=== PATIENT | female | born 1975 | race Asian ===

== ENCOUNTER 2019-03-14 23:01 | Emergency (ER) | payer MEDICAID ==
[~2019-03-14] VITALS: Ht 154.9 cm; Wt 90.0 kg
[~2019-03-14 23:01] MED LIST: CYCL1DRO EACHEYE; FLUT1DIS4 INH; IBUP-24 PO; LEVO137T2 PO; LORA10TA7 PO; PRED5TAB PO
[2019-03-14] MEDS ORDERED: guaiFENesin/codeine phos 10ml UD oral syrup PO ONE (23:30)
[2019-03-14] MEDS ORDERED: benzonatate 100mg capsule PO ONE (23:30)
[2019-03-14 23:48] LABS: BASOPHILS # (AUTO) 0.1 X10'3 (0-0.2); EOSINOPHILS # (AUTO) 0.3 X10'3 (0-0.9); EOSINOPHILS % (AUTO) 4.4 % (0-6); HEMATOCRIT 39.3 % (35.0-45.0); HEMOGLOBIN 13.3 g/dl (12.0-16.0); LYMPHOCYTES # (AUTO) 3.2 X10'3 (1.1-4.8); LYMPHOCYTES % (AUTO) 43.2 % (21-51); MEAN CORPUSCULAR HEMOGLOBIN 27.9 PG (27.0-31.0); MEAN CORPUSCULAR HGB CONC 33.9 g/dL (33.0-36.5); MEAN CORPUSCULAR VOLUME 82.4 FL (78-98); MEAN PLATELET VOLUME 7.6 FL (7.4-10.4); MONOCYTES # (AUTO) 0.4 X10'3 (0-0.9); MONOCYTES % (AUTO) 5.8 % (2-12); NEUTROPHILS # (AUTO) 3.3 X10'3 (1.8-7.7); NEUTROPHILS % (AUTO) 45.6 % (42-75); PLATELET COUNT 281 X10'3 (140-440); RED BLOOD COUNT 4.77 X10'6 (4.20-5.60); RED CELL DISTRIBUTION WIDTH 13.4 % (11.5-14.5); WHITE BLOOD COUNT 7.3 X10'3 (4.5-11.0)
[2019-03-15 00:02] LABS: ALANINE AMINOTRANSFERASE 30 U/L (12-78); ALBUMIN 3.4 G/DL (3.4-5.0); ALBUMIN/GLOBULIN RATIO 0.8 (1.1-1.5); ALKALINE PHOSPHATASE 59 IU/L (46-116); ANION GAP 6 (8-16); ASPARTATE AMINO TRANSFERASE 15 U/L (10-37); BILIRUBIN,TOTAL 0.1 MG/DL (0.1-1.0); BLOOD UREA NITROGEN 18 MG/DL (7-18); BUN/CREATININE RATIO 21.2 (6.6-38.0); CALCIUM 8.8 MG/DL (8.5-10.1); CHLORIDE 106 MMOL/L (99-107); CREATININE 0.85 MG/DL (0.40-0.90); GLUCOSE 151 MG/DL (70-104); POTASSIUM 3.5 MMOL/L (3.5-5.1); SODIUM 140 MMOL/L (135-145); TOTAL CARBON DIOXIDE 27.8 MMOL/L (24-32); TOTAL PROTEIN 7.7 G/DL (6.4-8.2); eGFR 73 ML/MIN
--- NOTE | 2019-03-15 00:50 | NUR ---
PTS SON AT BEDSIDE. VSS. AWAITING FLU RESULT
[2019-03-15] MEDS ORDERED: PROM5SYR2 PEG (01:04)
[2019-03-15 01:29] VITALS: BP 127/54
== END 2019-03-15 01:31 | disposition home or self-care (01) ==
LOC: ER 23:02
DX: R05 Cough (principal); R50.9 Fever, unspecified; R51 Headache; R19.7 Diarrhea, unspecified; R09.81 Nasal congestion; H92.01 Otalgia, right ear; J45.909 Unspecified asthma, uncomplicated; Z79.899 Other long term (current) drug therapy
CPT/HCPCS: 36415; 71046; 80053; 85025; 87502; 87503; 99284

== ENCOUNTER 2019-12-29 17:14 | Emergency (ER) | payer MEDICAID ==
[~2019-12-29 17:14] MED LIST changes: +PROM5SYR2 PEG
--- NOTE | 2019-12-29 18:09 | NUR ---
patient seen and assessed by provider
== END 2019-12-29 18:09 | disposition home or self-care (01) ==
LOC: ER 17:14
DX: J06.9 Acute upper respiratory infection, unspecified (principal); R05 Cough; Z20.828 Contact with and (suspected) exposure to other viral communicable diseases; J45.909 Unspecified asthma, uncomplicated; Z79.899 Other long term (current) drug therapy
CPT/HCPCS: 36415; 87635; 99283

== ENCOUNTER 2021-06-05 13:36 | Emergency (ER) | payer MEDICAID ==
[~2021-06-05] VITALS: Ht 152.4 cm; Wt 81.8 kg
[2021-06-05 13:39] VITALS: BP 139/81
== END 2021-06-05 16:11 | disposition home or self-care (01) ==
LOC: ER 13:40
DX: S06.0X0A Concussion without loss of consciousness, initial encounter (principal); J45.909 Unspecified asthma, uncomplicated; E06.9 Thyroiditis, unspecified; Z79.899 Other long term (current) drug therapy; W19.XXXA Unspecified fall, initial encounter; Y93.89 Activity, other specified; Y99.8 Other external cause status; Y92.89 Other specified places as the place of occurrence of the external cause
CPT/HCPCS: 70450; 99284

== ENCOUNTER 2021-07-16 22:13 | Emergency (ER) | payer MEDICAID ==
[~2021-07-16] VITALS: Ht 152.4 cm; Wt 87.0 kg
[2021-07-16 22:27] VITALS: BP 140/80
[2021-07-17] MEDS ORDERED: acetaminophen 325mg tablet PO ONE (02:30)
[2021-07-17] MEDS ORDERED: ibuprofen tablet 400 MG TABLET PO ONE (02:30)
== END 2021-07-17 02:43 | disposition home or self-care (01) ==
LOC: ER 22:14
DX: H92.02 Otalgia, left ear (principal); R51.9 Headache, unspecified; J45.909 Unspecified asthma, uncomplicated; Z79.899 Other long term (current) drug therapy
CPT/HCPCS: 99283

== ENCOUNTER 2024-07-11 08:03 | Outpatient (CLI) | payer MEDICAID ==
--- NOTE | 2024-07-11 11:04 | RADIOLOGY REPORT ---
CLINICAL INDICATION: PAIN IN RIGHT SHOULDER COMPARISON: None TECHNIQUE: Multiplanar, multisequence MRI of the right shoulder was performed without contrast. Contrast: None FINDINGS: Glenohumeral joint: There is no fracture or bone marrow edema. Heterogeneous marrow signal in the pro ximal humerus and the glenoid likely related to red marrow. Alignment is maintained. Focal chondra l thinning in the inferior glenoid with subchondral cysts. There is no joint effusion or synovitis. Acromioclavicular joint: The acromioclavicular joint is normal in appearance. Type 2 acromion. Rotator cuff and bursae: There is supraspinatus tendinosis and infraspinatus tendinosis. Mild fraying of the bursal surface fibers of supraspinatus. No full-thickness tear. Subscapularis and teres minor tendons are intact. There is no regional muscle atrophy. There is fluid in the subacromial subd eltoid bursa. Biceps tendon and glenoid labrum: The long head biceps tendon is located within the bicipital groove and intact. Tear of the anterior inferior glenoid labrum. 9 mm T2 hyperintense structure along t he inferior medial glenoid compatible with a paralabral cyst. IMPRESSION: 1. Supraspinatus tendinosis and fraying of the bursal surface fibers. No full-thickness tear. Infras pinatus tendinosis without tear. 2. Mild subacromial subdeltoid bursitis. 3. Tear of the anterior inferior glenoid labrum with 9 mm paralabral cyst. 4. Degenerative changes in the inferior glenoid. Alternatively, the appearance could be related to pr ior surgery and correlation with surgical history is recommended.
== END 2024-07-11 23:59 | disposition home or self-care (01) ==
LOC: MRI02 08:03
PROVIDERS: ATTEND Student in an Organized Health Care Education/Training Program
DX: S43.431A Superior glenoid labrum lesion of right shoulder, initial encounter (principal); M25.811 Other specified joint disorders, right shoulder; M25.511 Pain in right shoulder; X58.XXXA Exposure to other specified factors, initial encounter; Y93.89 Activity, other specified; Y92.89 Other specified places as the place of occurrence of the external cause; Y99.8 Other external cause status
CPT/HCPCS: 73221

== ENCOUNTER 2024-08-04 08:42 | Outpatient (CLI) | payer MEDICAID ==
--- NOTE | 2024-08-04 12:16 | VASCULAR REPORT ---
Lower Extremity Duplex Doppler Reflux Study Date: 08/04/2024 09:02 AM Clinical History: Varicose vein Comparison: None Findings: Duplex Doppler evaluation including color Doppler and spectral/pulsed waveform analysis of the deep a nd superficial veins of the lower extremities was performed for evaluation of reflux using tilt table technique and Valsalva and augmentation maneuvers. Reflux is defined as lasting greater than one second for the purposes of this examination. No reflux noted in the deep system of the right lower extremity reflux in the right GSV involving the mid and distal thigh. The right greater saphenous vein feeds into the varicose vein of the medial d istal thigh. No thrombus in the right lower extremity. IMPRESSION: Reflux is defined as lasting greater than one second for the purposes of this examination. No reflux noted in the deep system of the right lower extremity reflux in the right GSV involving the mid and distal thigh. The right greater saphenous vein feeds into the varicose vein of the medial d istal thigh. No thrombus in the right lower extremity. END IMPRESSION:
== END 2024-08-04 23:59 | disposition home or self-care (01) ==
LOC: VAS 08:42
PROVIDERS: ATTEND Student in an Organized Health Care Education/Training Program
DX: I83.891 Varicose veins of right lower extremity with other complications (principal)
CPT/HCPCS: 93971